=== PATIENT | female | born 1960 | race Caucasian/White ===

== ENCOUNTER 2016-12-14 09:14 | Outpatient (CLI) | payer OTHER ==
[2016-03-01 20:05] VITALS: BMI 28.8
[2016-12-14 09:32] LABS: BASOPHILS % (AUTO) 0.4 % (0.0-3.0); EOSINOPHILS # (AUTO) 0.2 K/ul (0.0-0.7); HEMATOCRIT 38.5 % (37.0-47.0); HEMOGLOBIN 13.1 g/dl (12.0-16.0); LYMPHOCYTES # (AUTO) 1.7 K/uL (0.60-3.4); LYMPHOCYTES % (AUTO) 36.7 (10.0-50.0); MEAN CORPUSCULAR HEMOGLOBIN 31.9 pg (27.0-31.0); MEAN CORPUSCULAR VOLUME 93.7 fl (81.0-99.0); MONOCYTES # (AUTO) 0.4 K/uL (0.4-2.0); MONOCYTES % (AUTO) 9.3 (0-10); NEUTROPHILS # (AUTO) 2.3 K/ul (2.0-6.9); NEUTROPHILS % (AUTO) 49.6; PLATELET COUNT 264 10^3/uL (140-440); RED BLOOD COUNT 4.11 10^6/ul (4.20-5.40); WHITE BLOOD COUNT 4.72 K/ul (4.6-10.2)
[2016-12-14 09:46] LABS: BILIRUBIN,URINE Negative (NEGATIVE); KETONES,URINE Negative (NEGATIVE); LEUKOCYTE ESTERASE ,URINE Negative (NEGATIVE); NITRITE,URINE Negative (NEGATIVE); PH,URINE 5.5 (5-9); PROTEIN,URINE Negative (NEGATIVE); URINE, BLOOD 1+ (NEGATIVE)
[2016-12-14 09:47] LABS: ADD URINE MICROSCOPIC YES
[2016-12-14 09:51] LABS: BACTERIA,URINE TRACE (NOT PRESENT)
[2016-12-14 09:57] LABS: ALBUMIN 4.1 g/dL (3.4-5.0); ALBUMIN/GLOBULIN RATIO 1.52; ANION GAP 14.2; BILIRUBIN,TOTAL 1.08 mg/dL (0.00-1.20); BUN/CREATININE RATIO 25.58; CALCIUM 9.7 mg/dL (8.2-10.2); CHOL/HDL RATIO 3.7 (4.5-5.5); CREATININE 0.86 mg/dL (0.60-1.30); POTASSIUM 4.2 mmol/L (3.5-5.10); TOTAL PROTEIN 6.8 g/dL (6.4-8.2)
== END 2016-12-14 09:15 | disposition home or self-care (01) ==
LOC: LAB 09:14
PROVIDERS: ATTEND General Practice
DX: R51 Headache (principal); E66.9 Obesity, unspecified; Z68.30 Body mass index [BMI] 30.0-30.9, adult; I10 Essential (primary) hypertension; E89.40 Asymptomatic postprocedural ovarian failure
CPT/HCPCS: 36415; 80053; 80061; 81001; 85025

== ENCOUNTER 2016-12-18 08:51 | Outpatient (CLI) ==
[2016-03-01 20:05] VITALS: BMI 28.8
--- NOTE | 2016-12-18 10:03 | US ---
Exam: Shaw-scale and color Doppler ultrasonographic evaluation of the kidneys and urinary bladder. Comparison: CT performed 06/10/2014. Reason for exam: Microscopic hematuria. FINDINGS: The right kidney measures approximately 10.72 x 4.43 x 5.69 cm with normal appearing echo texture, no hydronephrosis, and no nephrolithiasis. The left kidney measures approximately 10.01 x 5.10 x 5.26 cm with normal appearing echotexture, no hydronephrosis, and no nephrolithiasis. The bladder is grossly unremarkable without diverticula, debris, or mass lesion visualized. Impression: Unremarkable ultrasonographic evaluation of the kidneys.
== END 2016-12-18 08:52 | disposition home or self-care (01) ==
LOC: RAD 08:51
PROVIDERS: ATTEND General Practice
DX: R31.29 Other microscopic hematuria (principal)
CPT/HCPCS: 76770

== ENCOUNTER 2016-12-19 09:18 | Outpatient (CLI) ==
[2016-03-01 20:05] VITALS: BMI 28.8
[2016-12-19 09:34] LABS: BILIRUBIN,URINE Negative (NEGATIVE); KETONES,URINE Negative (NEGATIVE); LEUKOCYTE ESTERASE ,URINE Negative (NEGATIVE); NITRITE,URINE Negative (NEGATIVE); PROTEIN,URINE Negative (NEGATIVE); URINE, BLOOD Negative (NEGATIVE)
[2016-12-19 09:58] LABS: ADD URINE MICROSCOPIC NO
== END 2016-12-19 09:19 | disposition home or self-care (01) ==
LOC: LAB 09:18
PROVIDERS: ATTEND General Practice
DX: R31.9 Hematuria, unspecified (principal)
CPT/HCPCS: 81001

== ENCOUNTER 2016-12-20 17:55 | Outpatient (CLI) ==
[2016-03-01 20:05] VITALS: BMI 28.8
[2016-12-20 18:15] LABS: OCCULT BLOOD INTERNAL QC 1 INTERNAL QC VALID; OCCULT BLOOD INTERNAL QC 2 INTERNAL QC VALID; OCCULT BLOOD INTERNAL QC 3 INTERNAL QC VALID; OCCULT BLOOD SAMPLE 1 NEGATIVE (NEGATIVE); OCCULT BLOOD SAMPLE 2 NO SPECIMEN RECEIVED (NEGATIVE); OCCULT BLOOD SAMPLE 3 NO SPECIMEN RECEIVED (NEGATIVE)
== END 2016-12-20 17:56 | disposition home or self-care (01) ==
LOC: NONPT 17:55
PROVIDERS: ATTEND General Practice
DX: Z12.11 Encounter for screening for malignant neoplasm of colon (principal)
CPT/HCPCS: 82272

== ENCOUNTER 2017-01-03 13:06 | Outpatient (CLI) ==
[2016-03-01 20:05] VITALS: BMI 28.8
== END 2017-01-03 13:07 | disposition home or self-care (01) ==
LOC: RAD 13:06
PROVIDERS: ATTEND General Practice
DX: Z12.31 Encounter for screening mammogram for malignant neoplasm of breast (principal)
CPT/HCPCS: 77067

== ENCOUNTER 2017-11-08 07:48 | Outpatient (CLI) | payer OTHER ==
[2016-03-01 20:05] VITALS: BMI 28.8
== END 2017-11-08 07:49 | disposition home or self-care (01) ==
LOC: LAB 07:48
PROVIDERS: ATTEND General Practice
DX: E89.40 Asymptomatic postprocedural ovarian failure (principal); I10 Essential (primary) hypertension; E66.9 Obesity, unspecified; Z68.30 Body mass index [BMI] 30.0-30.9, adult; Z79.899 Other long term (current) drug therapy
CPT/HCPCS: 36415; 80053; 80061; 81001; 83525; 84443; 85025

== ENCOUNTER 2018-03-26 07:04 | Day surgery (SDC) | payer OTHER ==
[2016-03-01 20:05] VITALS: BMI 28.8
[2018-03-26 07:21] VITALS: TEMP 97.8
[2018-03-26] MEDS ORDERED: VERSED ONE (07:50)
[2018-03-26] MEDS ORDERED: DIPRIVAN 20 ML VIAL IVP ONE (07:50)
[2018-03-26] MEDS ORDERED: SUBLIMAZE ONE (07:50)
--- NOTE | 2018-03-27 11:09 | OP ---
INDICATIONS FOR PROCEDURE: 57-year-old female presents for colonoscopy exam. She has a history of adenomatous polyps removed three and one-half years ago. She has had a couple episodes of diarrhea followed by bright red blood per rectum. She is scheduled for colonoscopy investigation. MEDICATIONS: SEE ANESTHESIA NOTES. PROCEDURE: COLONOSCOPY, SNARE POLYPECTOMY. REPORT: The risks, benefits, alternatives and limitations were discussed in detail with the patient. Informed consent was obtained. After adequate sedation was achieved, digital rectal exam revealed good tone, no masses. The colonoscope was introduced into the rectum and advanced under direct visual guidance to the cecum. The cecum was identified by the appendiceal orifice and IC valve. I then slowly withdrew the scope in a circumferential manner examining the mucosa quite carefully. I looked on the proximal and distal side of folds and flexures as best as possible. I was able to retroflex the scope in the right colon and the left colon to increase visualization. In the right and left colon there were a few small mouth diverticula scattered throughout. In the descending area there was a diminutive 3 mm polyp that I destroyed by snare technique. In the distal sigmoid there was a diminutive 3 mm polyp I destroyed by snare technique. No other abnormalities were noted including on retroflex view of the anal canal. The prep was good. The withdrawal time was 12 minutes and 20 seconds. The patient tolerated the procedure well with stable vital signs and pulse oximetry throughout. IMPRESSION: 1. MILD SCATTERED DIVERTICULOSIS THROUGHOUT THE COLON. 2. TWO (2) DIMINUTIVE POLYPS SUCCESSFULLY REMOVED. RECOMMENDATIONS: 1. High fiber diet and I have suggested that she start on a daily fiber supplement. 2. Office visit as needed. 3. Colonoscopy examination again in 5 years, sooner if there are any signs or symptoms to indicate otherwise. CC: DR. VESNA HAN
[2018-03-28 14:12] VITALS: BP 129/57
== END 2018-03-26 09:30 | disposition home or self-care (01) ==
LOC: SURG 07:04
PROVIDERS: ATTEND Internal Medicine Gastroenterology
DX: Z86.010 Personal history of colon polyps (principal); K62.5 Hemorrhage of anus and rectum; R19.7 Diarrhea, unspecified; R10.32 Left lower quadrant pain; D12.4 Benign neoplasm of descending colon

== ENCOUNTER 2018-04-01 10:33 | Outpatient (CLI) | payer OTHER ==
[2016-03-01 20:05] VITALS: BMI 28.8
--- NOTE | 2018-04-03 08:48 | MAMMO ---
EXAM: Bilateral digital screening mammogram (2-D and 3-D) Comparison: Bilateral mammogram 08/04/2015 Findings: MLO and CC views of bilateral breasts demonstrate scattered fibroglandular breast parenchy ma. CAD was reviewed by the radiologist. Tomosynthesis was performed. Stable benign bilateral [address] calcifications. There are no dominant masses, no suspicious microcalcifications and no architectu ral distortions Impression: Benign stable mammogram. Recommend followup routine screening mammography in 1 year. BIRADS 2
== END 2018-04-01 10:34 | disposition home or self-care (01) ==
LOC: RAD 10:33
PROVIDERS: ATTEND General Practice
DX: Z12.31 Encounter for screening mammogram for malignant neoplasm of breast (principal)

== ENCOUNTER 2018-07-19 07:56 | Outpatient (CLI) | payer OTHER ==
[2016-03-01 20:05] VITALS: BMI 28.8
== END 2018-07-19 07:57 | disposition home or self-care (01) ==
LOC: LAB 07:56
PROVIDERS: ATTEND General Practice
DX: R51 Headache (principal); I10 Essential (primary) hypertension; E66.9 Obesity, unspecified; Z79.899 Other long term (current) drug therapy
CPT/HCPCS: 36415; 80053; 80061; 81001; 85025